=== PATIENT | female | born 1980 | race African-American/Black ===

== ENCOUNTER 2017-10-28 10:57 | Emergency (ER) | payer OTHER, SELFPAY ==
[2017-10-28] MEDS ORDERED: Dexamethasone 10 MG/ML VIAL ONE (12:41)
[2017-10-28] MEDS ORDERED: Bicillin LA 1.2 MILLION UNITS/2 ML SYRINGE ONE (12:42)
== END 2017-10-28 13:07 | disposition home or self-care (01) ==
LOC: ERS 10:57
DX: J02.0 Streptococcal pharyngitis (principal); F41.9 Anxiety disorder, unspecified; J45.909 Unspecified asthma, uncomplicated; Z85.89 Personal history of malignant neoplasm of other organs and systems; Z79.899 Other long term (current) drug therapy
CPT/HCPCS: 87430; 96372; J0561; J1100

== ENCOUNTER 2018-01-12 16:37 | Emergency (ER) | payer SELFPAY | END 2018-01-12 19:02 | disposition home or self-care (01) | LOC: ERS 16:37 | DX: N64.4 Mastodynia (principal); F41.9 Anxiety disorder, unspecified; F17.210 Nicotine dependence, cigarettes, uncomplicated; Z71.6 Tobacco abuse counseling | CPT/HCPCS: 99406 ==

== ENCOUNTER 2018-04-07 09:05 | Emergency (ER) | payer SELFPAY ==
[2018-04-07] MEDS ORDERED: diphenhydrAMINE 50 MG CAP ONE (09:53)
[2018-04-07] MEDS ORDERED: Ketorolac Tromethamine 60 MG/2 ML VIAL ONE (09:54)
[2018-04-07] MEDS ORDERED: Acetaminophen 500 MG TAB ONE (09:54)
[2018-04-07] MEDS ORDERED: Ondansetron ODT 8 MG TAB ONE (09:54)
== END 2018-04-07 10:36 | disposition home or self-care (01) ==
LOC: ERS 09:05
DX: R51 Headache (principal); J45.909 Unspecified asthma, uncomplicated; F41.9 Anxiety disorder, unspecified; F17.210 Nicotine dependence, cigarettes, uncomplicated; Z79.899 Other long term (current) drug therapy
CPT/HCPCS: 96372; J1885

== ENCOUNTER 2018-12-05 13:14 | Emergency (ER) | payer BC, SELFPAY ==
[2018-12-05] MEDS ORDERED: Famotidine 20 MG TAB ONE (13:48)
[2018-12-05] MEDS ORDERED: predniSONE 20 MG TAB ONE (13:48)
[2018-12-05 14:26] LABS: Anion Gap 11 mmol/L (10-20); BUN (Urea Nitrogen) 6 mg/dL (7.0-18.7); Calc. Creatinine Clearance 0 mL/min (70-130); Carbon Dioxide 22 mmol/L (22-29); Chloride 107 mmol/L (98-107); Estimated GFR-MDRD Greater than 90; Glucose 79 mg/dL (70-105); Sodium 136 mmol/L (136-145)
[2018-12-05] MEDS ORDERED: Ketorolac Tromethamine 60 MG/2 ML VIAL ONE (15:01)
== END 2018-12-05 15:33 | disposition home or self-care (01) ==
LOC: ERS 13:14
DX: T78.40XA Allergy, unspecified, initial encounter (principal); R51 Headache; J45.909 Unspecified asthma, uncomplicated; Z79.899 Other long term (current) drug therapy; Z87.891 Personal history of nicotine dependence
CPT/HCPCS: 36415; 80048; 96372; J1885; J7512

== ENCOUNTER 2021-06-04 15:22 | Emergency (ER) | payer BC, OTHER, SELFPAY ==
[2021-06-04] MEDS ORDERED: Ibuprofen 200 MG TAB ONE (19:03)
[2021-06-05 07:51] LABS: SARS-CoV-2 PCR by NAA DETECTED (NotDetected)
== END 2021-06-04 19:55 | disposition home or self-care (01) ==
LOC: ERS 15:22
DX: U07.1 COVID-19 (principal); G43.909 Migraine, unspecified, not intractable, without status migrainosus; J45.909 Unspecified asthma, uncomplicated
CPT/HCPCS: 87804; 99283; U0003; U0005